=== PATIENT | male | born 1990 | race Caucasian/White ===

== ENCOUNTER → 2017-01-20 | Outpatient (CLI) | payer OTHER ==
[~2017-01-20] MED LIST: MOBIC15 MG PO
== END | disposition short-term general hospital (02) ==
LOC: CLORTH 08:45
DX: M25.512 Pain in left shoulder (principal); R20.0 Anesthesia of skin; R20.2 Paresthesia of skin

== ENCOUNTER 2017-03-03 06:09 | Day surgery (SDC) | payer OTHER ==
[~2017-03-03] VITALS: Ht 193 cm; Wt 104.3 kg
== END 2017-03-03 13:20 | disposition short-term general hospital (02) ==
LOC: SURGOP 06:09
PROC: 0RBK4ZZ Excision of Left Shoulder Joint, Percutaneous Endoscopic Approach (ICD-10-PCS; principal; 2017-03-03)
PROC: 0RNK4ZZ Release Left Shoulder Joint, Percutaneous Endoscopic Approach (ICD-10-PCS; 2017-03-03)
DX: M75.112 Incomplete rotator cuff tear or rupture of left shoulder, not specified as traumatic (principal); G58.8 Other specified mononeuropathies; M94.212 Chondromalacia, left shoulder; S43.402A Unspecified sprain of left shoulder joint, initial encounter; Z88.8 Allergy status to other drugs, medicaments and biological substances; Z90.49 Acquired absence of other specified parts of digestive tract; Z98.890 Other specified postprocedural states
CPT/HCPCS: J0131; J0171; J0690; J1170; J1885; J2250; J2270; J2310; J2710; J3010

== ENCOUNTER → 2017-03-17 | Outpatient (CLI) | payer OTHER | END | disposition short-term general hospital (02) | LOC: CLORTH 03-03 03:52 | DX: Z47.89 Encounter for other orthopedic aftercare (principal) ==

== ENCOUNTER → 2017-04-14 | Outpatient (CLI) | payer OTHER | END | disposition short-term general hospital (02) | LOC: CLORTH 05:19 | DX: Z47.89 Encounter for other orthopedic aftercare (principal) ==